=== PATIENT | male | born 1960 | race Two or more races ===

== ENCOUNTER 2018-06-25 10:51 | Outpatient (CLI) | payer OTHER ==
[~2018-06-25 10:51] MED LIST: ASPIR 8181 MG; COZAAR100 MG; VYTORIN 10-401 EACH
[2018-06-26] MEDS ORDERED: LATANOPROST2.5 ML OP (11:50)
== END 2018-06-25 11:00 | disposition home or self-care (01) ==
LOC: RAD 501 10:51
DX: N62 Hypertrophy of breast (principal); I10 Essential (primary) hypertension

== ENCOUNTER 2018-06-28 06:17 | Day surgery (SDC) | payer OTHER ==
[~2018-06-28 06:17] MED LIST changes: +LATANOPROST2.5 ML OP
== END 2018-06-28 14:15 | disposition home or self-care (01) ==
LOC: CIR.AMB 06:17
DX: N62 Hypertrophy of breast (principal)

== ENCOUNTER → 2019-05-07 | Outpatient (CLI) | payer OTHER | END | disposition home or self-care (01) | LOC: RAD 15:17 → TOM 15:17 | DX: M25.572 Pain in left ankle and joints of left foot (principal) ==

== ENCOUNTER 2019-07-31 09:53 | Outpatient (CLI) | payer OTHER | END 2019-07-31 11:02 | disposition home or self-care (01) | LOC: NUCLEAR 09:53 | DX: M86.172 Other acute osteomyelitis, left ankle and foot (principal) | CPT/HCPCS: 78802; A9556; 78315; A9503 ==

== ENCOUNTER 2020-05-21 09:56 | Emergency (ER) | payer OTHER ==
[~2020-05-21] VITALS: Ht 177.8 cm; Wt 90.7 kg
[2020-05-21] MEDS ORDERED: VOLTAREN100 GM TOP (13:40)
[2020-05-21] MEDS ORDERED: CYCLOBENZAPRINE10 MG PO (13:40)
== END 2020-05-21 13:47 | disposition home or self-care (01) ==
LOC: ER 09:56
DX: M75.32 Calcific tendinitis of left shoulder (principal); M25.512 Pain in left shoulder

== ENCOUNTER 2021-02-27 10:20 | Emergency (ER) | payer OTHER ==
[~2021-02-27] VITALS: Ht 177.8 cm; Wt 90.7 kg
[~2021-02-27 10:20] MED LIST changes: +CYCLOBENZAPRINE10 MG PO; +VOLTAREN100 GM TOP
[2021-02-27] MEDS ORDERED: TAMOXIFEN CITRA20 MG PO (10:45)
[2021-02-27] MEDS ORDERED: METFORMIN HCL500 M3 (10:46)
[2021-02-27] MEDS ORDERED: PNEU16DI2 IJ (10:47)
[2021-02-27] MEDS ORDERED: HYDRALAZINE HCL10 MG PO (10:47)
== END 2021-02-27 16:05 ==
LOC: ER 10:20
DX: N39.0 Urinary tract infection, site not specified (principal); Z03.818 Encounter for observation for suspected exposure to other biological agents ruled out; E11.9 Type 2 diabetes mellitus without complications; I10 Essential (primary) hypertension; Z79.84 Long term (current) use of oral hypoglycemic drugs

== ENCOUNTER 2022-03-03 09:34 | Outpatient (CLI) | payer OTHER ==
[~2022-03-03 09:34] MED LIST changes: +HYDRALAZINE HCL10 MG PO; +METFORMIN HCL500 M3; +PNEU16DI2 IJ; +TAMOXIFEN CITRA20 MG PO
== END 2022-03-03 09:44 | disposition home or self-care (01) ==
LOC: SONOGRAMA 09:34
PROVIDERS: ATTEND Pathology Anatomic Pathology & Clinical Pathology
DX: R59.0 Localized enlarged lymph nodes (principal)

== ENCOUNTER 2022-12-15 08:17 | Outpatient (CLI) | payer OTHER | END 2022-12-15 08:21 | disposition home or self-care (01) | LOC: NUCLEAR 08:17 | PROVIDERS: ATTEND Internal Medicine Pulmonary Disease | DX: J43.2 Centrilobular emphysema (principal); R91.1 Solitary pulmonary nodule; Z72.0 Tobacco use ==

== ENCOUNTER 2024-10-17 10:27 | Outpatient (CLI) | payer OTHER | END 2024-10-17 10:32 | disposition home or self-care (01) | LOC: RAD 10:27 | PROVIDERS: ATTEND Orthopaedic Surgery | DX: M25.572 Pain in left ankle and joints of left foot (principal) ==